=== PATIENT | female | born 1950 | race African-American/Black ===

== ENCOUNTER 2016-05-17 10:01 | Emergency (ER) | payer MEDICARE, OTHER ==
[~2016-05-17] VITALS: Ht 162.6 cm; Wt 63.0 kg
[~2016-05-17 10:01] MED LIST: AMLODIPINE BESYL5 MG ORAL; ATENOLOL25 MG ORAL; ATORVASTATIN CA40 MG ORAL; DEXILANT60 MG ORAL; HYDROCHLOROTH12.5 M2 ORAL; LOSARTAN POTASS25 MG ORAL; NAPROXEN500 M2 ORAL; NORCO 5-325 TA1 EACH ORAL; XARELTO10 MG ORAL
[2016-05-17] MEDS ORDERED: BETAPACE80 MG PO (10:26)
[2016-05-17] MEDS ORDERED: PRAVASTATIN SOD20 M1 ORAL (10:26)
[2016-05-17] MEDS ORDERED: Acetaminophen 500mg (ES) tab PO ONE (10:45)
--- NOTE | 2016-05-17 11:18 | Diagnostic Imaging Report ---
Indication: Left foot pain Technique: XRAY FOOT MIN 3V LEFT Comparison: None Findings: There is no acute fracture or dislocation. Plantar calcaneal enthesophyte is seen. There is osteopenia. Impression: No acute osseous abnormality.
--- NOTE | 2016-05-17 11:19 | Diagnostic Imaging Report ---
Indication: Left ankle pain Technique: XRAY ANKLE MIN 3VWS LEFT Comparison: None Findings: There is no acute fracture or dislocation. There is mild lateral ankle soft tissue swelling. Plantar calcaneal enthesophyte is seen. Impression: No acute osseous abnormality. Mild soft tissue swelling of the lateral ankle. Clinical correlation recommended.
[2016-05-17] MEDS ORDERED: TYLENOL EXTRA500 MG ORAL (11:25)
[2016-05-17 11:30] VITALS: BP 135/85
[2016-05-17 11:33] VITALS: BP 135/85
--- NOTE | 2016-05-17 13:07 | Emergency Room Report ---
History of Present Illness General Chief Complaint: Lower Extremity Injury Source: Patient, Medical Record Present Illness HPI 65-year-old female presents to ED complaining of left ankle pain and swelling. States yesterday she had a mechanical trip and fall. States that she twisted her left ankle in the process. Denies any other injuries. Notes pain to her left foot ankle. Throbbing. 8 out of 10. Worse with walking. However is able to bear weight. No other aggravating relieving factors. Denies any other associated symptoms Allergies: Coded Allergies: LATEX (Verified Allergy, Unknown, 08/26/15) PENICILLINS (Verified Allergy, Unknown, 08/26/15) Patient History Past Medical History: HTN Past Surgical History: none Pertinent Family History: none Social History: Denies: alcohol use, drug use, smoking Last Menstrual Period: on menopause Now: No Immunizations: UTD Reviewed Nursing Documentation: PMH: Agreed, PSxH: Agreed Nursing Documentation-PMH Past Medical History: No History, Except For Hx Hypertension: Yes Hx COPD: No - sciatica Hx Cerebrovascular Accident: No - RIGHT KNEE MENISCUS SURGERY Review of Systems All Other Systems: negative except mentioned in HPI Physical Exam Vital Signs Date Time Temp Pulse Resp B/P Pulse Ox O2 Delivery O2 Flow Rate FiO2 05/17/16 10:19 98.2 109 16 146/98 99 Room Air Sp02 EP Interpretation: reviewed, normal General Appearance: no apparent distress, alert, GCS 15, non-toxic Head: normocephalic Eyes: bilateral eye PERRL, bilateral eye normal inspection ENT: normal ENT inspection Neck: normal inspection Respiratory: normal inspection Cardiovascular #1: normal inspection Gastrointestinal: normal inspection Rectal: deferred Genitourinary: no CVA tenderness Musculoskeletal: tender - L ankle/foot Neurologic: alert, oriented x3, responsive, motor strength/tone normal, sensory intact, speech normal Psychiatric: normal inspection Skin: normal inspection Lymphatic: normal inspection Procedures Splinting Splinting : Pre-Made Type: BOBO wrap - crutches Pre-Proc Neuro Vasc Exam: normal Post-Proc Neuro Vasc Exam: normal Patient Tolerated: Well Complications: None Medical Decision Making Diagnostic Impression: Primary Impression: Ankle sprain Qualified Codes: S93.402A - Sprain of unspecified ligament of left ankle, initial encounter ER Course Hospital Course 65-year-old F presents to ED complaining of L foot/ankle pain s/p trip and fall Differential diagnoses include: Fracture, dislocation, sprain, contusion Clinical course Patient placed on stretcher. After initial history and physical, I ordered pain medications and Xrays of L foot/ankle Xrays prelim read shows no acute fracture/dislocation. placed in bobo wrap, given crutches Diagnosis - ankle sprain Stable and discharged to home with prescription for Tylenol. apply ice, keep elevated. weight bear as tolerated. Followup with PMD. Return to ED if symptoms recur or worsen Other X-Ray Diagnostic Results Other X-Ray Diagnostic Results : X-Ray Ordered: L foot, L ankle EP Interpretation: No Findings: no fractures, no dislocation Number of Views: 3 Other Impression Left foot-No fracture, no dislocation, no soft tissue swelling Left ankle-No fracture, no dislocation, + soft tissue swelling Last Vital Signs Date Time Temp Pulse Resp B/P Pulse Ox O2 Delivery O2 Flow Rate FiO2 05/17/16 11:33 98.2 94 16 135/85 99 Room Air Status: improved Disposition: HOME, SELF-CARE Condition: Stable Scripts Acetaminophen* (TYLENOL EXTRA STRENGTH*) 500 Mg Tablet 500 MG ORAL Q8H Y for Prn Headache/Temp > 101, #30 TAB 0 Refills Prov: TULIO JOSEPH M.D. 05/17/16 Patient Instructions: Ankle Sprain TULIO JOSEPH M.D. May 17, 2016 13:07
== END 2016-05-17 11:33 | disposition home or self-care (01) ==
LOC: EMR 10:46
DX: S93.402A Sprain of unspecified ligament of left ankle, initial encounter (principal); I10 Essential (primary) hypertension; Z91.040 Latex allergy status; Z88.0 Allergy status to penicillin; W01.0XXA Fall on same level from slipping, tripping and stumbling without subsequent striking against object, initial encounter; Y92.9 Unspecified place or not applicable; Y99.8 Other external cause status
CPT/HCPCS: 29540; 99284